=== PATIENT | female | born 1970 | race Asian ===

== ENCOUNTER 2018-06-05 10:51 | Day surgery (SDC) | payer OTHER, SELFPAY ==
[2018-06-05] VITALS (7 sets, daily range): BP systolic 105–145; BP diastolic 73–94; PULSE 56–73; RESP 11–16; TEMP 36.2–37.1; O2SAT 97–100; BMI 24.7
--- NOTE | 2018-06-05 | PATH_ITS ---
[facility] Accession Number: [id number] . 01 Material submitted: . PART A: ENDOCERVICAL POLYP PART B: ENDOMETRIAL CURETTINGS . 02 Diagnosis: A. Endocervical Polyp: Fragments of inflamed cervical / endocervical polyp with reactive squamous features; negative for squamous and glandular dysplasia and malignancy. Portion of lower uterine segment; negative for glandular hyperplasia, cytologic atypia, and malignancy. . B. Endometrial Curettings: Polypoid portions of late secretory endometrium; negative for glandular hyperplasia, cytologic atypia, and malignancy. [facility]/06/08/2018 . 02 Comment: This patient's previous Pap smear report ([id number]; 06/04/2018) is reviewed, and the atypical squamous cells present on the previous Pap smear could derive from the current biopsy tissue. These findings do not correlate, in the appropriate clinical setting. . 02 Electronically signed: . Liz Paulino MD, Pathologist NPI- [id number] . 01 Gross description: . Received two formalin-filled containers, both labeled with the patient's name: . A. In a container labeled endocervical polyp, are multiple less than 0.1 cm to 0.7 cm portions of tissue and mucoid material, entirely submitted in cassette A. B. In a container labeled endometrial curettings, is approximately a 1.5 cc aggregate of tissue, mucoid material, and blood, which is filtered, wrapped, and entirely submitted in cassette B. ([id number]) /FRR . 02 Pathologist provided ICD-10: N84.1 . 02 CPT . 182576, 989930 Performed at: 01 [facility] [address] [place] [id number] MD Steven Swann MD Phone: [phone] Performed at: 02 [facility] [address] [place] [address] [id number] MD Beata Ortiz MD Phone: [phone]
[2018-06-05] MEDS: LACTATED RINGERS 1,000 ML 42 ML IV (11:27)
--- NOTE | 2018-06-05 12:32 | SUR.OPER ---
Lithotomy on padded OR bed, head on pillow, arms secured on padded arm boards at <90 degrees abduction. Legs secured in padded yellow fins stirrups.
--- NOTE | 2018-06-05 12:40 | PM.PREOP ---
Pre-operative Note Interval Note History & Physical reviewed/Exam performed by Physician: Yes Changes to H&P: No
--- NOTE | 2018-06-05 13:25 | SUR.OPER ---
Novasure cavity length 4.0, width 4.6, time 76 seconds, power 101.
--- NOTE | 2018-06-08 07:07 | PM.HP.1 ---
History of Present Illness Date Patient Seen: 06/05/18 Time Patient Seen: 11:45 Chief complaint: [id number] Narrative: Patient is a 47-year-old with menometrorrhagia here for D&C hysteroscopy and NovaSure endometrial ablation Patient History Medical History Diabetes, gestational (Acute) Hyperlipidemia (Acute) Impaired vision (Acute) Surgical History Status post delivery (07/08/11) Status post tubal ligation (07/08/11) Social History household members: spouse and children Smoking Status: Never smoker Family & Social History Social History: household members spouse,children Tobacco & Substance use: Smoking Status Never smoker Meds Home Medications Medication Instructions Recorded Confirmed Type cetirizine 10 mg PO Q DAY #0 08/15/16 06/05/18 History multivitamin [Multiple Vitamins] 1 tab PO QDAY #0 08/15/16 06/05/18 History flaxseed oil 1,400 mg PO DAILY 06/05/18 06/05/18 History oxycodone-acetaminophen [Percocet] 1 tab PO Q4-6H PRN #14 tab 06/05/18 Rx Allergies Allergy/AdvReac Type Severity Reaction Status Date / Time No Known Drug Allergies Allergy Verified 06/05/18 11:09 Exam Vital Signs (past 8 hours): Oxygen Delivery Method Room Air Narrative Exam Narrative: HEENT: No thyromegaly, no anterior cervical or supraclavicular lymphadenopathy. Lungs:Clear to auscultation bilaterally, no wheezes. Cardiovascular: Regular rate and rhythm, no murmurs, rubs, or gallops. Abdomen: Well-healed scars. No hepatosplenomegaly. No masses palpable. External genitalia: Normal Vagina: Normal Cervix: [Normal] Bimanual exam: 7 Week size uterus. Mobile. Rectal: [No masses]. Assessment & Plan Assessment & Plan narrative: Assessment: 47-year-old with menometrorrhagia Anemia Plan: D&C hysteroscopy with NovaSure endometrial ablation The risks, benefits, and alternatives to the procedure were explained to the patient. The risks including bleeding, infection, and uterine perforation. She understands these risks and agrees to proceed. A full PAR-Q was held and consent form was signed.
--- NOTE | 2018-06-08 07:15 | P.OP_ITS ---
Operative Date/Time/Diagnoses Date of procedure: 06/05/18 Time of procedure: 13:00 Pre-op diagnosis: Menometrorrhagia Anemia Post-op diagnosis: same Procedure: Procedures Operation Date: 06/05/18 12:00 Actual Procedures Side Surgeon p Hysteroscopy D&C w/Novasure Endometrial Ablation, Endocervical polypectomy Sara Walden MD Indications: Menometrorrhagia Anemia Surgeon: Sara Walden Anesthesia Type: General (LMA) Operative Notes Findings: 6 week size uterus Both fallopian tubes observed Endocervical polyp Length of the uterus 4.0 cm, with of the uterus 4.6 cm, power 101 w, time 76 sec Closure Type: not applicable Specimen(s): endometrial curettings and other (Endocervical polyp) Estimated blood loss (mL): 20 Blood products transfused: none Procedure in detail: After informed consent was obtained, the patient was taken to the operating room where she was placed in the dorsal supine position after adequate LMA general anesthesia was achieved, she was placed in the dorsal lithotomy position and prepped and draped in the usual sterile fashion. A time- out was performed. A bivalve speculum was placed into the vagina and the anterior lip of the cervix grasped with a single-tooth tenaculum. An endocervical polyp was observed. The cervical os was sequentially dilated until the hysteroscope could be passed easily into the endometrial cavity. Initial inspection with the hysteroscope revealed both fallopian tube ostia. No polyps or fibroids were observed in the uterus. Sharp curettage was performed yielding a large amount of endometrial curettings. The hysteroscope was removed. Uterus was measured from the internal os to the fundus and measured 4 cm. This was set on the NovaSure catheter as well as the generator. The NovaSure catheter passed easily into the endometrial cavity and was opened. The width of the uterus was 4.6 cm. This was set on the NovaSure generator. This indicated a power of 101 w. The cervix was capped, the cavity assessment was performed and passed. The cycle was initiated and lasted 76 sec at the completion of the cycle the cervix was then capped, the NovaSure catheter was closed and removed from the uterus. Using a small loop, the endocervical polyp was removed. Hemostasis was achieved. The single-tooth tenaculum was removed from the anterior lip of the cervix. [place] speculum was removed from the vagina sponge, lap, and instrument counts were correct x2. The patient tolerated the procedure well, was taken to PACU in stable condition. Complications: none Post-operative Condition: stable Disposition: PACU Plan for aftercare: Home after recovery
== END 2018-06-05 14:31 | disposition home or self-care (01) ==
PROVIDERS: PCP Family Medicine; Visit Provider Obstetrics & Gynecology
PROC: 0U5B8ZZ Destruction of Endometrium, Via Natural or Artificial Opening Endoscopic (ICD-10-PCS; CPT 58563; principal; 2018-06-05 12:00)
DX: N84.1 Polyp of cervix uteri (principal); D64.9 Anemia, unspecified; E78.5 Hyperlipidemia, unspecified
CPT/HCPCS: 58563; J1100; J1885; J2704

== ENCOUNTER 2018-11-27 16:40 | Observation (INO) | payer OTHER, SELFPAY ==
[2018-11-27] VITALS (14 sets, daily range): BP systolic 108–173; BP diastolic 61–100; PULSE 66–94; RESP 10–98; TEMP 36.8–38.2; O2SAT 95–100; BMI 24.2
--- NOTE | 2018-11-27 | PATH_ITS ---
[facility] Accession Number: [id number] . 01 Material submitted: . appendix - APPENDIX . 01 Clinical history: . FEVER, LOWER RIGHT PAIN . 02 Diagnosis: Appendix: Acute necrotizing appendicitis. [facility]/12/02/2018 . 02 Electronically signed: . Pop Piña MD, Pathologist NPI- [id number] . 01 Gross description: . Received in formalin, labeled appendix, is an intact appendix (length-6.5 cm, diameter-0.8 cm) with hawthorne-taylor smooth shiny focally exudate-covered serosa and attached mesoappendix (up to 1.2 cm thick). The resection margin is crimped closed. The lumen contains brown solid soft material. The wall is up to 0.3 cm thick. No nodules, masses or lesions are identified. The resection margin is inked black. Section code: (A1) resection margin en face and three additional passenger relations representative serial sections; (A2) one-half of the bivalved tip. ([id number]) /MRV . 02 Pathologist provided ICD-10: K35.80 . 02 CPT . 051879 Performed at: 01 [facility] [address], [place], [place] [id number] MD Steven Swann MD Phone: [phone] Performed at: 02 [facility] [address] [place], [place] [id number] MD Beata Ortiz MD Phone: [phone]
[2018-11-27] MEDS: SODIUM CHLORIDE 0.9% 1,000 ML 1000 ML IV (17:49)
[2018-11-27 18:04] LABS: Alanine Aminotransferase 7 IU/L (9-52); Albumin 4.5 g/dL (3.5-5.0); Albumin Globulin Ratio 1.2 (1.0-2.8); Alkaline Phosphatase 63 U/L (38-126); Aspartate Aminotransferase 18 IU/L (14-36); BUN Creatinine Ratio 16.7 (6-22); Bilirubin Total 0.8 mg/dL (0.2-1.3); Blood Urea Nitrogen 10 mg/dL (7-17); Calcium 9.4 mg/dL (8.4-10.2); Carbon Dioxide 25 mmol/L (22-32); Chloride 100 mmol/L (98-107); Estimated Glomerular Filt Rate > 60.0 mL/min (>60); Globulin 3.7 g/dL (1.7-4.1); Glucose 103 mg/dL (70-100); HEMOLYSIS < 15 (0-50); Lipase 50 U/L (23-300); Potassium 3.7 mmol/L (3.4-5.1); Sodium 136 mmol/L (137-145); Total Protein 8.2 g/dL (6.3-8.2)
[2018-11-27 18:09] LABS: Add Manual Diff / Slide Review NO; Basophils Absolute Auto 100 /uL (0-100); Basophils Percent Auto 0.4 % (0-2); Eosinophils Absolute Auto 0 /uL (0-450); Eosinophils Percent Auto 0.1 % (2-4); Hematocrit 38.7 % (36-46); Hemoglobin 13.3 g/dL (12.0-16.0); Lymphocytes Absolute Auto 1300 /uL (1100-4500); Mean Corpuscular HGB Conc 34.3 % (30-36); Mean Corpuscular Hemoglobin 29.9 PG (26-34); Mean Corpuscular Volume 87.2 fL (80-100); Monocytes Absolute Auto 900 /uL (0-900); Monocytes Percent Auto 5.7 % (3-14); Neutrophils Absolute Auto 12600 /uL (1500-7000); Neutrophils Percent Auto 84.8 % (50-75); Platelet Count 252 X10^3/uL (150-400); Red Blood Cell Count 4.44 X10^6/uL (4.0-5.2); White Blood Cell Count 14.8 X10^3/uL (4.5-11.0)
--- NOTE | 2018-11-27 18:11 | DI.CT.S_ITS ---
PROCEDURE: CT ABDOMEN PELVIS W CON INDICATIONS: RLQ pain with nausea and fever TECHNIQUE: After the administration of intravenous contrast, 5 mm thick sections acquired from the diaphragm to the symphysis. 5 mm coronal and sagittal reformats were acquired. For radiation dose reduction, the following was used: automated exposure control, adjustment of mA and/or kV according to patient size. COMPARISON: None. FINDINGS: Image quality: Excellent. ABDOMEN: Lung bases: Lung bases are clear. Heart size is normal. Solid organs: Liver is normal in size and enhancement. Gallbladder appears normal. Biliary system is non dilated. Pancreas enhances normally. Spleen is normal in size and enhancement. No adrenal nodules. Kidneys demonstrate normal size and enhancement, without hydronephrosis. Peritoneum and bowel: Bowel loops demonstrate normal wall thickness and caliber. No free fluid or air. Nodes and vessels: No retroperitoneal or mesenteric adenopathy by size criteria. Aorta and inferior vena cava are normal in size. Miscellaneous: No ventral hernias. PELVIS: Genitourinary: Bladder wall thickness is normal. Miscellaneous: No inguinal hernias or adenopathy. At the right lower quadrant there is acute appendicitis with 2 adjacent appendicoliths immediately beyond the base of the appendix and appendiceal diameter is relatively larger 1.2 cm, fluid filled with periappendiceal edema but without evidence of appendiceal perforation. Bones: No suspicious bony lesions. No vertebral body compression fractures. IMPRESSION: Acute appendicitis, appendicoliths are present which increase the risk of perforation. However, no evidence of periappendiceal abscess is present. Findings immediately called to the ordering health care provider. Dictated by: Blane Alvarez M.D. on 11/27/2018 at 18:57 Approved by: lBane Alvarez M.D. on 11/27/2018 at 18:58
[2018-11-27] MEDS: PIPERACILLIN-TAZO 3.375 GM/50 ML FROZ.PIGGY IV (19:11)
[2018-11-27] MEDS: LACTATED RINGERS 1,000 ML 42 ML IV (19:30)
--- NOTE | 2018-11-27 19:32 | PM.HP.1 ---
History of Present Illness Date Patient Seen: 11/27/18 Time Patient Seen: 19:32 Chief complaint: FEVER LOWER RIGHT PAIN Narrative: 48-year-old white female patient has had pain for 24 hours in the mid abdomen radiating now into the right lower quadrant she has had significant anorexia has not eaten all day nausea but no vomiting. Slight elevation of her white count in the emergency room this evening with a left shift. CT scan of the abdomen and pelvis confirms acute uncomplicated appendicitis. She has received IV Zosyn and is being prepared for appendectomy Patient History Medical History Diabetes, gestational (Acute) Hyperlipidemia (Acute) Impaired vision (Acute) Surgical History Status post delivery (07/08/11) Status post tubal ligation (07/08/11) Social History household members: spouse and children Smoking Status: Never smoker Family & Social History Social History: household members spouse,children Safety & Behavioral: Feels Safe in Current Yes Environment Tobacco & Substance use: Smoking Status Never smoker Substance Use Type does not use Meds Home Medications Medication Instructions Recorded Confirmed Type cetirizine 10 mg PO DAILY #0 08/15/16 11/27/18 History multivitamin [Multiple Vitamins] 1 tab PO DAILY #0 08/15/16 11/27/18 History flaxseed oil 1 dose PO DAILY 11/27/18 11/27/18 History fluticasone propionate [Flonase 1 puff INTRANASAL DAILY 11/27/18 11/27/18 History Allergy Relief] ibuprofen 1 dose PO PRN PRN 11/27/18 11/27/18 History Allergies Allergy/AdvReac Type Severity Reaction Status Date / Time No Known Drug Allergies Allergy Verified 11/27/18 17:17 Review of Systems Review of Systems All systems reviewed & are unremarkable except as noted in HPI and below Exam Vital Signs (past 8 hours): - 11/27/18 17:19 11/27/18 18:46 Temperature 100.8 F H Pulse Rate 94 H 84 Respiratory Rate 18 16 Blood Pressure 173/100 H Blood Pressure [Left Arm] 128/80 Pulse Oximetry 100 100 Oxygen Delivery Method Room Air Narrative Exam Narrative: She is slightly febrile 100.8 ears nose and throat are normal Neck no adenopathy Lungs are clear with no rales or wheezes Heart regular rhythm no murmur Abdomen is exquisitely tender in the right lower quadrant with guarding and rebound tenderness. All other quadrants are nontender. Pelvic was not done. Extremities are normal. Neurologic normal. Objective Labs Result Diagrams: 11/27/18 17:40 11/27/18 17:40 Labs: Laboratory Results - last 24 hr 11/27/18 08 17:40 17:40 WBC 14.8 H RBC 4.44 Hgb 13.3 Hct 38.7 MCV 87.2 MCH 29.9 MCHC 34.3 RDW 13.0 Plt Count 252 Neut % (Auto) 84.8 H Lymph % (Auto) 9.0 L Hughes % (Auto) 5.7 Eos % (Auto) 0.1 L Baso % (Auto) 0.4 Neut # (Auto) 73644 H Lymph # (Auto) 1300 Hughes # (Auto) 900 Eos # (Auto) 0 Baso # (Auto) 100 Sodium 136 L Potassium 3.7 Chloride 100 Carbon Dioxide 25 BUN 10 Creatinine 0.60 Estimated GFR > 60.0 BUN/Creatinine Ratio 16.7 Glucose 103 H Calcium 9.4 Total Bilirubin 0.8 AST 18 ALT 7 L Alkaline Phosphatase 63 Total Protein 8.2 Albumin 4.5 Globulin 3.7 Albumin/Globulin Ratio 1.2 Lipase 50 Assessment & Plan Assessment & Plan narrative: Patient has acute uncomplicated appendicitis. Is receiving IV fluids. Has received a dose of Zosyn. She will have an open appendectomy. She understands the disease process and the operation and has no further questions.
--- NOTE | 2018-11-27 20:28 | SUR.OPER ---
Supine on padded OR bed, head on pillow, arms secured on padded arm boards at <90 degrees abduction, legs uncrossed, safety belt at thigh, tape over blanket over lower legs.
[2018-11-27] MEDS: SODIUM CHLORIDE IRRIG SOLUTION 1,000 ML, BACITRACIN 50,000 UNIT IRR (20:34)
[2018-11-27] MEDS: BUPIVACAINE 0.5% W/ EPI (PF) VIAL 30 ML INJ (20:39)
--- NOTE | 2018-11-27 20:55 | PM.OP.1 ---
Operative Date/Time/Diagnoses Date of procedure: 11/27/18 Time of procedure: 20:56 Pre-op diagnosis: Acute appendicitis uncomplicated Post-op diagnosis: same Procedure & Clinicians Procedure: Appendectomy Same procedure as scheduled: Yes Indications: Acute appendicitis Surgeon: Keith Young Click Yes if Unassisted: Yes Anesthesia Type: General Operative Notes Findings: Acute uncomplicated appendicitis Closure Type: primary Specimen(s): other (Appendix and peritoneal cultures were submitted) Estimated Blood Loss (mL): 50 Blood products transfused: none Procedure in detail: The patient was properly identified during surgical pause under general endotracheal anesthesia. She was prepped and draped in a sterile fashion exposure of the lower abdomen. A standard Gokul-Tucker incision was made over McBurney's point the oblique muscles split in a grid iron fashion so as to expose the peritoneum. Peritoneum was opened avoiding injury to the underlying structures. The cecum was rotated into the wound. The appendix was grossly infected covered with fibrin but not perforated. There was no abscess. Peritoneal fluid around the appendix was cultured for aerobes and anaerobes. The appendix was elevated and the mesoappendix divided between clamps the vessels ligated with 2 0 Vicryl. There was excellent hemostasis. The base the appendix was stapled closed with a TA instrument. The appendix was removed. The staple line was intact. The peritoneal cavity in the right lower quadrant and pelvis irrigated with copious bacitracin saline aspirated dry. There was no bleeding. No further purulence. Peritoneum closed with a running 2 0 Vicryl. Fascia closed with 1. PDS. Subcu irrigated with bacitracin. Skin loosely stapled. Sterile dressings applied procedure well tolerated. Complications: none Condition: stable Disposition: PACU
[2018-11-27] MEDS: HYDROMORPHONE 2 MG INJ 0.5 MG IV (21:11)
--- NOTE | 2018-11-27 21:41 | SUR.PHASEI ---
PACU Phase 1 post op note: VSS, O2 sat WNL,Pain improved to 1/10 after single dose of pain medication. Tolerating ice chips without nausea. Dressing CDI to RLQ. Ice pack to surgical site. Stable to transfer to IP room 213 Bedside report to Reza XIAO. Suad Hughes RN
[2018-11-27] MEDS: DEXTROSE 5%-0.45% NS 1,000 ML 100 ML IV (23:30)
--- NOTE | 2018-11-27 23:40 | ED.ABDPAIN ---
HPI - Abdominal Pain <Omari MezaMariluBrentjennifer [facility] - Last Filed: 11/28/18 00:06> General Chief Complaint: Abdominal Pain Stated Complaint: FEVER LOWER RIGHT PAIN Time Seen by Provider: 11/27/18 17:34 Source: patient Mode of arrival: ambulatory Limitations: no limitations History of Present Illness HPI narrative: This is a 48-year-old female, non smoker, presents with her spouse with chief complain of right lower quadrant pain with decreased appetite, fever, chills, nausea and vomiting once. The patient reports onset of her discomfort started after the midnight and mid upper abdomen discomfort now has radiated to right lower quadrant. She reports abdominal bloatedness, pain increases with any movements, laughing, or even cough. She reports her appetite has decreased and her last solid food was last night. Her T-max at home was 102 and had taken ibuprofen for this. She reports prior history of with bilateral tubal ligation. She also reports some urinary difficulty. Related Data Home Medications Medication Instructions Recorded Confirmed cetirizine 10 mg PO DAILY #0 08/15/16 11/27/18 multivitamin [Multiple Vitamins] 1 tab PO DAILY #0 08/15/16 11/27/18 flaxseed oil 1 dose PO DAILY 11/27/18 11/27/18 fluticasone propionate [Flonase 1 puff INTRANASAL DAILY 11/27/18 11/27/18 Allergy Relief] ibuprofen 1 dose PO PRN PRN 11/27/18 11/27/18 Allergies Allergy/AdvReac Type Severity Reaction Status Date / Time No Known Drug Allergies Allergy Verified 11/27/18 19:48 Review of Systems <Omari Styles [facility] - Last Filed: 11/28/18 00:06> Review of Systems General: See HPI HEENT: Denies sinus pain, ear pain, sore throat, difficulty swallowing, dizziness. Respiratory: Denies dyspnea, cough, wheezing, hemoptysis, sputum. Cardiovascular: Denies chest pain, palpitations, orthopnea, edema. Gastrointestinal: See HPI : Reports dysuria. Denies frequency, incontinence, hematuria, urinary retention. Musculoskeletal: Denies weakness, joint pain or bony pain. Skin: Denies rash, skin lesions, or other. Neurologic: Denies weakness, headache, numbness, change in speech, confusion, seizures, incoordination. Psychiatric: No concerning psychosocial issues. 12-point review of systems is negative except for those stated above. PFSH <ALVARO Viera - Last Filed: 11/28/18 00:06> Medical History (Updated 11/27/18 @ 23:53 by ALVARO Viera) Menorrhagia (Resolved) Diabetes, gestational (Acute) Hyperlipidemia (Acute) Impaired vision (Acute) Surgical History (Updated 11/27/18 @ 23:53 by ALVARO Viera) History of endometrial ablation (Chronic) Status post delivery (07/08/11) Status post tubal ligation (07/08/11) Social History household members: spouse and children Smoking Status: Never smoker alcohol intake: current Social History household members: spouse and children Smoking Status: Never smoker alcohol intake: current Exam <ALVARO Viera - Last Filed: 11/28/18 00:06> Narrative Exam Narrative: General appearance: well developed, well nourished, in no acute distress. Head: normocephalic, atraumatic, no scalp lesions, non-tender. Eye: pupil equal, round. EOMI. Nose: nares patent. Oral: mucosa moist. Neck/Thyroid: neck supple, full range of motion, no visible masses. Skin: no suspicious rashes, lesions over visible areas. Warm and dry. Heart: S1, S2. Normal heart rate and regular rhythm. Lungs: Lung sounds are clear to auscultate bilaterally. Breathing even and unlabored. No stridor. No accessory muscles used. Chest: normal shape and expansion. Abdomen: Neurologic: alert and oriented. Cognitive exam, [employer] and PNS grossly intact on informal exam. Psych: good eye contact, normal affect. Initial Vital Signs Initial Vital Signs: Vital Signs Temperature 100.8 F H 11/27/18 17:19 Pulse Rate 94 H 11/27/18 17:19 Respiratory Rate 18 11/27/18 17:19 Blood Pressure 173/100 H 11/27/18 17:19 Pulse Oximetry 100 11/27/18 17:19 GI Inspection: normal to inspection, non-distended and no visible herniation Palpation: soft, guarding (Positive rebound tenderness in right lower quadrant), No mass and tender Auscultation: normal bowel sounds <Singh Ramirez DO - Last Filed: 11/28/18 07:37> Initial Vital Signs Initial Vital Signs: Vital Signs Temperature 100.8 F H 11/27/18 17:19 Pulse Rate 94 H 11/27/18 17:19 Respiratory Rate 18 11/27/18 17:19 Blood Pressure 173/100 H 11/27/18 17:19 Pulse Oximetry 100 11/27/18 17:19 Course <Omari StylesALVARO - Last Filed: 11/28/18 00:06> Orders Ordered: Acetaminophen (Tylenol) 650 mg PO Q6HR PRN PRN Reason: As Needed for Fever/Mild Pain Hydrocodone Bitart/Acetaminophen ([place] 5/325) 1 tab PO Q4HR PRN PRN Reason: Pain, Moderate (4-6) Calcium Carbonate (Tums) 1,000 mg PO Q4HR PRN PRN Reason: Dyspepsia Fentanyl (Sublimaze) 50 mcg IV Q5MIN PRN PRN Reason: Pain, Moderate (4-6) Hydromorphone HCl (Dilaudid) 0.5 mg IV Q5MIN PRN PRN Reason: Pain, Moderate (4-6) Last Admin: 11/27/18 21:11 Dose: 0.5 mg Lactated Ringer's (Lactated Ringers) 1,000 mls @ 42 mls/hr IV CONT [facility] Last Admin: 11/27/18 19:30 Dose: 42 mls/hr Dextrose/Sodium Chloride (Dextrose 5%-0.45% Ns) 1,000 mls @ 100 mls/hr IV CONT [facility] Last Admin: 11/27/18 23:30 Dose: 100 mls/hr Meperidine HCl (Demerol) 25 mg IV Q5MIN PRN PRN Reason: Pain or shivering Metoclopramide HCl (Reglan) 10 mg IV NOW PRN PRN Reason: Nausea And Vomiting Morphine Sulfate (Morphine) 2 mg IV Q4HR PRN PRN Reason: Pain, Moderate (4-6) Ondansetron HCl (Zofran) 4 mg IV NOW PRN PRN Reason: Nausea And Vomiting Ondansetron HCl (Zofran) 4 mg IV Q8HR PRN PRN Reason: Nausea And Vomiting Discontinued Medications Bupivacaine HCl/Epinephrine Bitart (Sensorcaine 0.5% W/ Epi (Pf)) 30 ml INJ NOW ONE Stop: 11/27/18 20:35 Last Admin: 11/27/18 20:39 Dose: 30 ml Sodium Chloride 1,000 ml/ (Bacitracin 50,000 unit) 0 ml IRR NOW ONE Stop: 11/27/18 20:35 Last Admin: 11/27/18 20:34 Dose: 1,000 irrig.soln Sodium Chloride (Normal Saline 0.9%) 1,000 mls @ 1,000 mls/hr IV BOLUS ONE Stop: 11/27/18 18:31 Last Infusion: 11/27/18 19:14 Dose: 0 mls/hr Admin: 11/27/18 17:49 Dose: 1,000 mls/hr Piperacillin/Tazobactam/Dextrose (Zosyn) 3.375 gm in 50 mls @ 100 mls/hr IV NOW ONE Stop: 11/27/18 19:30 Last Infusion: 11/27/18 19:40 Dose: 0 mls/hr Admin: 11/27/18 19:11 Dose: 100 mls/hr Vital Signs - 8 hr 11/28/18 00:00 11/28/18 06:00 Temperature 98.3 F 98.1 F Pulse Rate 69 61 Respiratory Rate 16 16 Blood Pressure 110/66 108/65 Pulse Oximetry 98 98 <Singh Ramirez, - Last Filed: 11/28/18 07:37> Orders Ordered: Acetaminophen (Tylenol) 650 mg PO Q6HR PRN PRN Reason: As Needed for Fever/Mild Pain Hydrocodone Bitart/Acetaminophen ([place] 5/325) 1 tab PO Q4HR PRN PRN Reason: Pain, Moderate (4-6) Calcium Carbonate (Tums) 1,000 mg PO Q4HR PRN PRN Reason: Dyspepsia Fentanyl (Sublimaze) 50 mcg IV Q5MIN PRN PRN Reason: Pain, Moderate (4-6) Hydromorphone HCl (Dilaudid) 0.5 mg IV Q5MIN PRN PRN Reason: Pain, Moderate (4-6) Last Admin: 11/27/18 21:11 Dose: 0.5 mg Lactated Ringer's (Lactated Ringers) 1,000 mls @ 42 mls/hr IV CONT [facility] Last Admin: 11/27/18 19:30 Dose: 42 mls/hr Dextrose/Sodium Chloride (Dextrose 5%-0.45% Ns) 1,000 mls @ 100 mls/hr IV CONT [facility] Last Admin: 11/27/18 23:30 Dose: 100 mls/hr Meperidine HCl (Demerol) 25 mg IV Q5MIN PRN PRN Reason: Pain or shivering Metoclopramide HCl (Reglan) 10 mg IV NOW PRN PRN Reason: Nausea And Vomiting Morphine Sulfate (Morphine) 2 mg IV Q4HR PRN PRN Reason: Pain, Moderate (4-6) Ondansetron HCl (Zofran) 4 mg IV NOW PRN PRN Reason: Nausea And Vomiting Ondansetron HCl (Zofran) 4 mg IV Q8HR PRN PRN Reason: Nausea And Vomiting Discontinued Medications Bupivacaine HCl/Epinephrine Bitart (Sensorcaine 0.5% W/ Epi (Pf)) 30 ml INJ NOW ONE Stop: 11/27/18 20:35 Last Admin: 11/27/18 20:39 Dose: 30 ml Sodium Chloride 1,000 ml/ (Bacitracin 50,000 unit) 0 ml IRR NOW ONE Stop: 11/27/18 20:35 Last Admin: 11/27/18 20:34 Dose: 1,000 irrig.soln Sodium Chloride (Normal Saline 0.9%) 1,000 mls @ 1,000 mls/hr IV [facility] ONE Stop: 11/27/18 18:31 Last Infusion: 11/27/18 19:14 Dose: 0 mls/hr Admin: 11/27/18 17:49 Dose: 1,000 mls/hr Piperacillin/Tazobactam/Dextrose (Zosyn) 3.375 gm in 50 mls @ 100 mls/hr IV NOW ONE Stop: 11/27/18 19:30 Last Infusion: 11/27/18 19:40 Dose: 0 mls/hr Admin: 11/27/18 19:11 Dose: 100 mls/hr Vital Signs - 8 hr 11/28/18 00:00 11/28/18 06:00 Temperature 98.3 F 98.1 F Pulse Rate 69 61 Respiratory Rate 16 16 Blood Pressure 110/66 108/65 Pulse Oximetry 98 98 MDM - Abdominal Pain <Omari MezaMariluPoonamALVARO - Last Filed: 11/28/18 00:06> Differential Diagnosis Differential diagnosis: Likely abdominal pain, acute appendicitis, calculus of kidney, small bowel obstruction and other (UTI, ovarian cyst) Medical Records Attestation: I reviewed the patient's medical records. Lab Data Attestation: I reviewed the patient's lab results. Result diagrams: 11/27/18 17:40 11/27/18 17:40 Lab Results 11/27/18 11/27/18 Range/Units 17:40 17:40 WBC 14.8 H (4.5-11.0) X10^3/uL RBC 4.44 (4.0-5.2) X10^6/uL Hgb 13.3 (12.0-16.0) g/dL Hct 38.7 (36-46) % MCV 87.2 (80-100) fL MCH 29.9 (26-34) PG MCHC 34.3 (30-36) % RDW 13.0 (11.6-14.8) % Plt Count 252 (150-400) X10^3/uL Neut % (Auto) 84.8 H (50-75) % Lymph % (Auto) 9.0 L (25-40) % [place] % (Auto) 5.7 (3-14) % Eos % (Auto) 0.1 L (2-4) % Baso % (Auto) 0.4 (0-2) % Neut # (Auto) 02726 H (0106-3851) /uL Lymph # (Auto) 1300 (7755-0031) /uL [place] # (Auto) 900 (0-900) /uL Eos # (Auto) 0 (0-450) /uL Baso # (Auto) 100 (0-100) /uL Sodium 136 L (137-145) mmol/L Potassium 3.7 (3.4-5.1) mmol/L Chloride 100 (98-107) mmol/L Carbon Dioxide 25 (22-32) mmol/L BUN 10 (7-17) mg/dL Creatinine 0.60 (0.52-1.04) mg/dL Estimated GFR > 60.0 (>60) mL/min BUN/Creatinine Ratio 16.7 (6-22) Glucose 103 H (70-100) mg/dL Calcium 9.4 (8.4-10.2) mg/dL Total Bilirubin 0.8 (0.2-1.3) mg/dL AST 18 (14-36) IU/L ALT 7 L (9-52) IU/L Alkaline Phosphatase 63 (38-126) U/L Total Protein 8.2 (6.3-8.2) g/dL Albumin 4.5 (3.5-5.0) g/dL Globulin 3.7 (1.7-4.1) g/dL Albumin/Globulin Ratio 1.2 (1.0-2.8) Lipase 50 (23-300) U/L Point of care testing: Point of Care Testing Test Results Negative Urine Dip Bedside Urine Glucose Negative Bedside Urine Bilirubin - Negative Bedside Urine Ketone - Negative Urine Specific [place] 1.015 Bedside Urine Occult Blood - Negative Bedside Urine pH 6.5 Bedside Urine Protein - Negative Bedside Urine Urobilinogen - Negative Bedside Urine Nitrite - Negative Bedside Urine Leukocytes - Negative Esterase Imaging Data CT scan - abdomen: Radiologist's impression: [place] [address] CT Scan Report Signed Patient: Lila Morales JMR#: [id number] : 1970Acct:[id number] Age/Sex: 48 / FDate of Service: 11/27/18 Loc: ED Accession Number: [id number] Procedure: CT abdomen pelvis w con Ordering Provider: Omari Styles PROCEDURE: CT ABDOMEN PELVIS W CON INDICATIONS: RLQ pain with nausea and fever TECHNIQUE: After the administration of intravenous contrast, 5 mm thick sections acquired from the diaphragm to the symphysis. 5 mm coronal and sagittal reformats were acquired. For radiation dose reduction, the following was used: automated exposure control, adjustment of mA and/or kV according to patient size. COMPARISON: None. FINDINGS: Image quality: Excellent. ABDOMEN: Lung bases: Lung bases are clear. Heart size is normal. Solid organs: Liver is normal in size and enhancement. Gallbladder appears normal. Biliary system is non dilated. Pancreas enhances normally. Spleen is normal in size and enhancement. No adrenal nodules. Kidneys demonstrate normal size and enhancement, without hydronephrosis. Peritoneum and bowel: Bowel loops demonstrate normal wall thickness and caliber. No free fluid or air. Nodes and vessels: No retroperitoneal or mesenteric adenopathy by size criteria. Aorta and inferior vena cava are normal in size. Miscellaneous: No ventral hernias. PELVIS: Genitourinary: Bladder wall thickness is normal. Miscellaneous: No inguinal hernias or adenopathy. At the right lower quadrant there is acute appendicitis with 2 adjacent appendicoliths immediately beyond the base of the appendix and appendiceal diameter is relatively larger 1.2 cm, fluid filled with periappendiceal edema but without evidence of appendiceal perforation. Bones: No suspicious bony lesions. No vertebral body compression fractures. IMPRESSION: Acute appendicitis, appendicoliths are present which increase the risk of perforation. However, no evidence of periappendiceal abscess is present. Findings immediately called to the ordering health care provider. Dictated by: Blane Alvarez M.D. on 11/27/2018 at 18:57 Approved by: Blane Alvarez M.D. on 11/27/2018 at 18:58 [facility] Narrative Medical decision making narrative: This is a pleasant 48-year-old female complaining of right lower quadrant pain with nausea and vomiting x1, fever, chills, decreased appetite since the pain started after the midnight this morning. She also reports urinary discomfort. The CBC indicates elevated white count with neutrophil. The chemistry test and urine test were unremarkable. CT scan shows acute appendicitis with appendicoliths and appendiceal diameter is relatively larger in 1.2 cm with fluid filled periappendiceal edema. Her physical exam is consistent with acute appendicitis. There was no perforation was noted in CT scan. Radiologist, Dr. Alvarez, called the ER to inform the findings. Dr. Recio was consulted over the phone and discussed findings. Patient was started on IV Zosyn as instructed by Dr. Recio. Dr. Recio kindly accepted her care and to take her to surgery. <Singh Ramirez, DO - Last Filed: 11/28/18 07:37> Lab Data Lab Results 11/27/18 11/27/18 Range/Units 17:40 17:40 WBC 14.8 H (4.5-11.0) X10^3/uL RBC 4.44 (4.0-5.2) X10^6/uL Hgb 13.3 (12.0-16.0) g/dL Hct 38.7 (36-46) % MCV 87.2 (80-100) fL MCH 29.9 (26-34) PG MCHC 34.3 (30-36) % RDW 13.0 (11.6-14.8) % Plt Count 252 (150-400) X10^3/uL Neut % (Auto) 84.8 H (50-75) % Lymph % (Auto) 9.0 L (25-40) % [place] % (Auto) 5.7 (3-14) % Eos % (Auto) 0.1 L (2-4) % Baso % (Auto) 0.4 (0-2) % Neut # (Auto) 38389 H (4752-3882) /uL Lymph # (Auto) 1300 (3433-1439) /uL [place] # (Auto) 900 (0-900) /uL Eos # (Auto) 0 (0-450) /uL Baso # (Auto) 100 (0-100) /uL Sodium 136 L (137-145) mmol/L Potassium 3.7 (3.4-5.1) mmol/L Chloride 100 (98-107) mmol/L Carbon Dioxide 25 (22-32) mmol/L BUN 10 (7-17) mg/dL Creatinine 0.60 (0.52-1.04) mg/dL Estimated GFR > 60.0 (>60) mL/min BUN/Creatinine Ratio 16.7 (6-22) Glucose 103 H (70-100) mg/dL Calcium 9.4 (8.4-10.2) mg/dL Total Bilirubin 0.8 (0.2-1.3) mg/dL AST 18 (14-36) IU/L ALT 7 L (9-52) IU/L Alkaline Phosphatase 63 (38-126) U/L Total Protein 8.2 (6.3-8.2) g/dL Albumin 4.5 (3.5-5.0) g/dL Globulin 3.7 (1.7-4.1) g/dL Albumin/Globulin Ratio 1.2 (1.0-2.8) Lipase 50 (23-300) U/L Point of care testing: Point of Care Testing Test Results Negative Urine Dip Bedside Urine Glucose Negative Bedside Urine Bilirubin - Negative Bedside Urine Ketone - Negative Urine Specific [place] 1.015 Bedside Urine Occult Blood - Negative Bedside Urine pH 6.5 Bedside Urine Protein - Negative Bedside Urine Urobilinogen - Negative Bedside Urine Nitrite - Negative Bedside Urine Leukocytes - Negative Esterase Discharge Plan Departure Patient Disposition: Admitted As Inpatient Clinical Impression: Acute appendicitis Qualifiers: Acute appendicitis type: unspecified acute appendicitis type Qualified Code(s): K35.80 - Unspecified acute appendicitis Discharge Date/Time: 11/27/18 19:28 Interventions: ED Discharge Assessment Last Done: 11/27/18 19:28 Admit Date/Time: 11/27/18 19:11 Admit Provider: Keith Young <Singh Ramirez DO - Last Filed: 11/28/18 07:37> Cosign ED Attending Roshan Attestation: I was available for consultation during this patient's emergency department encounter
--- NOTE | 2018-11-27 23:50 | ED_ITS ---
HPI - Abdominal Pain <[facility] - Last Filed: 11/28/18 00:06> General Chief Complaint: Abdominal Pain Stated Complaint: FEVER LOWER RIGHT PAIN Time Seen by Provider: 11/27/18 17:34 Source: patient Mode of arrival: ambulatory Limitations: no limitations History of Present Illness HPI narrative: This is a 48-year-old female, non smoker, presents with her spouse with chief complain of right lower quadrant pain with decreased appetite, fever, chills, nausea and vomiting once. The patient reports onset of her discomfort started after the midnight and mid upper abdomen discomfort now has radiated to right lower quadrant. She reports abdominal bloatedness, pain increases with any movements, laughing, or even cough. She reports her appetite has decreased and her last solid food was last night. Her T-max at home was 102 and had taken ibuprofen for this. She reports prior history of with bilateral tubal ligation. She also reports some urinary difficulty. Related Data Home Medications Medication Instructions Recorded Confirmed cetirizine 10 mg PO DAILY #0 08/15/16 11/27/18 multivitamin [Multiple Vitamins] 1 tab PO DAILY #0 08/15/16 11/27/18 flaxseed oil 1 dose PO DAILY 11/27/18 11/27/18 fluticasone propionate [Flonase 1 puff INTRANASAL DAILY 11/27/18 11/27/18 Allergy Relief] ibuprofen 1 dose PO PRN PRN 11/27/18 11/27/18 Allergies Allergy/AdvReac Type Severity Reaction Status Date / Time No Known Drug Allergies Allergy Verified 11/27/18 19:48 Review of Systems <[facility] - Last Filed: 11/28/18 00:06> Review of Systems General: See HPI HEENT: Denies sinus pain, ear pain, sore throat, difficulty swallowing, dizziness. Respiratory: Denies dyspnea, cough, wheezing, hemoptysis, sputum. Cardiovascular: Denies chest pain, palpitations, orthopnea, edema. Gastrointestinal: See HPI : Reports dysuria. Denies frequency, incontinence, hematuria, urinary retention. Musculoskeletal: Denies weakness, joint pain or bony pain. Skin: Denies rash, skin lesions, or other. Neurologic: Denies weakness, headache, numbness, change in speech, confusion, seizures, incoordination. Psychiatric: No concerning psychosocial issues. 12-point review of systems is negative except for those stated above. PFSH <ALVARO Viera - Last Filed: 11/28/18 00:06> Medical History (Updated 11/27/18 @ 23:53 by ALVARO Viera) Menorrhagia (Resolved) Diabetes, gestational (Acute) Hyperlipidemia (Acute) Impaired vision (Acute) Surgical History (Updated 11/27/18 @ 23:53 by ALVARO Viera) History of endometrial ablation (Chronic) Status post delivery (07/08/11) Status post tubal ligation (07/08/11) Social History household members: spouse and children Smoking Status: Never smoker alcohol intake: current Social History household members: spouse and children Smoking Status: Never smoker alcohol intake: current Exam <ALVARO Viera - Last Filed: 11/28/18 00:06> Narrative Exam Narrative: General appearance: well developed, well nourished, in no acute distress. Head: normocephalic, atraumatic, no scalp lesions, non-tender. Eye: pupil equal, round. EOMI. Nose: nares patent. Oral: mucosa moist. Neck/Thyroid: neck supple, full range of motion, no visible masses. Skin: no suspicious rashes, lesions over visible areas. Warm and dry. Heart: S1, S2. Normal heart rate and regular rhythm. Lungs: Lung sounds are clear to auscultate bilaterally. Breathing even and unlabored. No stridor. No accessory muscles used. Chest: normal shape and expansion. Abdomen: Neurologic: alert and oriented. Cognitive exam, [employer] and PNS grossly intact on informal exam. Psych: good eye contact, normal affect. Initial Vital Signs Initial Vital Signs: Vital Signs Temperature 100.8 F H 11/27/18 17:19 Pulse Rate 94 H 11/27/18 17:19 Respiratory Rate 18 11/27/18 17:19 Blood Pressure 173/100 H 11/27/18 17:19 Pulse Oximetry 100 11/27/18 17:19 GI Inspection: normal to inspection, non-distended and no visible herniation Palpation: soft, guarding (Positive rebound tenderness in right lower quadrant), No mass and tender Auscultation: normal bowel sounds <Singh Ramirez DO - Last Filed: 11/28/18 07:37> Initial Vital Signs Initial Vital Signs: Vital Signs Temperature 100.8 F H 11/27/18 17:19 Pulse Rate 94 H 11/27/18 17:19 Respiratory Rate 18 11/27/18 17:19 Blood Pressure 173/100 H 11/27/18 17:19 Pulse Oximetry 100 11/27/18 17:19 Course <Omari StylesALVARO - Last Filed: 11/28/18 00:06> Orders Ordered: Acetaminophen (Tylenol) 650 mg PO Q6HR PRN PRN Reason: As Needed for Fever/Mild Pain Hydrocodone Bitart/Acetaminophen (Maxie 5/325) 1 tab PO Q4HR PRN PRN Reason: Pain, Moderate (4-6) Calcium Carbonate (Tums) 1,000 mg PO Q4HR PRN PRN Reason: Dyspepsia Fentanyl (Sublimaze) 50 mcg IV Q5MIN PRN PRN Reason: Pain, Moderate (4-6) Hydromorphone HCl (Dilaudid) 0.5 mg IV Q5MIN PRN PRN Reason: Pain, Moderate (4-6) Last Admin: 11/27/18 21:11 Dose: 0.5 mg Lactated Ringer's (Lactated Ringers) 1,000 mls @ 42 mls/hr IV CONT [facility] Last Admin: 11/27/18 19:30 Dose: 42 mls/hr Dextrose/Sodium Chloride (Dextrose 5%-0.45% Ns) 1,000 mls @ 100 mls/hr IV CONT [facility] Last Admin: 11/27/18 23:30 Dose: 100 mls/hr Meperidine HCl (Demerol) 25 mg IV Q5MIN PRN PRN Reason: Pain or shivering Metoclopramide HCl (Reglan) 10 mg IV NOW PRN PRN Reason: Nausea And Vomiting Morphine Sulfate (Morphine) 2 mg IV Q4HR PRN PRN Reason: Pain, Moderate (4-6) Ondansetron HCl (Zofran) 4 mg IV NOW PRN PRN Reason: Nausea And Vomiting Ondansetron HCl (Zofran) 4 mg IV Q8HR PRN PRN Reason: Nausea And Vomiting Discontinued Medications Bupivacaine HCl/Epinephrine Bitart (Sensorcaine 0.5% W/ Epi (Pf)) 30 ml INJ NOW ONE Stop: 11/27/18 20:35 Last Admin: 11/27/18 20:39 Dose: 30 ml Sodium Chloride 1,000 ml/ (Bacitracin 50,000 unit) 0 ml IRR NOW ONE Stop: 11/27/18 20:35 Last Admin: 11/27/18 20:34 Dose: 1,000 irrig.soln Sodium Chloride (Normal Saline 0.9%) 1,000 mls @ 1,000 mls/hr IV BOLUS ONE Stop: 11/27/18 18:31 Last Infusion: 11/27/18 19:14 Dose: 0 mls/hr Admin: 11/27/18 17:49 Dose: 1,000 mls/hr Piperacillin/Tazobactam/Dextrose (Zosyn) 3.375 gm in 50 mls @ 100 mls/hr IV NOW ONE Stop: 11/27/18 19:30 Last Infusion: 11/27/18 19:40 Dose: 0 mls/hr Admin: 11/27/18 19:11 Dose: 100 mls/hr Vital Signs - 8 hr 11/28/18 00:00 11/28/18 06:00 Temperature 98.3 F 98.1 F Pulse Rate 69 61 Respiratory Rate 16 16 Blood Pressure 110/66 108/65 Pulse Oximetry 98 98 <Singh Ramirez, - Last Filed: 11/28/18 07:37> Orders Ordered: Acetaminophen (Tylenol) 650 mg PO Q6HR PRN PRN Reason: As Needed for Fever/Mild Pain Hydrocodone Bitart/Acetaminophen (Maxie 5/325) 1 tab PO Q4HR PRN PRN Reason: Pain, Moderate (4-6) Calcium Carbonate (Tums) 1,000 mg PO Q4HR PRN PRN Reason: Dyspepsia Fentanyl (Sublimaze) 50 mcg IV Q5MIN PRN PRN Reason: Pain, Moderate (4-6) Hydromorphone HCl (Dilaudid) 0.5 mg IV Q5MIN PRN PRN Reason: Pain, Moderate (4-6) Last Admin: 11/27/18 21:11 Dose: 0.5 mg Lactated Ringer's (Lactated Ringers) 1,000 mls @ 42 mls/hr IV CONT [facility] Last Admin: 11/27/18 19:30 Dose: 42 mls/hr Dextrose/Sodium Chloride (Dextrose 5%-0.45% Ns) 1,000 mls @ 100 mls/hr IV CONT [facility] Last Admin: 11/27/18 23:30 Dose: 100 mls/hr Meperidine HCl (Demerol) 25 mg IV Q5MIN PRN PRN Reason: Pain or shivering Metoclopramide HCl (Reglan) 10 mg IV NOW PRN PRN Reason: Nausea And Vomiting Morphine Sulfate (Morphine) 2 mg IV Q4HR PRN PRN Reason: Pain, Moderate (4-6) Ondansetron HCl (Zofran) 4 mg IV NOW PRN PRN Reason: Nausea And Vomiting Ondansetron HCl (Zofran) 4 mg IV Q8HR PRN PRN Reason: Nausea And Vomiting Discontinued Medications Bupivacaine HCl/Epinephrine Bitart (Sensorcaine 0.5% W/ Epi (Pf)) 30 ml INJ NOW ONE Stop: 11/27/18 20:35 Last Admin: 11/27/18 20:39 Dose: 30 ml Sodium Chloride 1,000 ml/ (Bacitracin 50,000 unit) 0 ml IRR NOW ONE Stop: 11/27/18 20:35 Last Admin: 11/27/18 20:34 Dose: 1,000 irrig.soln Sodium Chloride (Normal Saline 0.9%) 1,000 mls @ 1,000 mls/hr IV BOLUS ONE Stop: 11/27/18 18:31 Last Infusion: 11/27/18 19:14 Dose: 0 mls/hr Admin: 11/27/18 17:49 Dose: 1,000 mls/hr Piperacillin/Tazobactam/Dextrose (Zosyn) 3.375 gm in 50 mls @ 100 mls/hr IV NOW ONE Stop: 11/27/18 19:30 Last Infusion: 11/27/18 19:40 Dose: 0 mls/hr Admin: 11/27/18 19:11 Dose: 100 mls/hr Vital Signs - 8 hr 11/28/18 00:00 11/28/18 06:00 Temperature 98.3 F 98.1 F Pulse Rate 69 61 Respiratory Rate 16 16 Blood Pressure 110/66 108/65 Pulse Oximetry 98 98 MDM - Abdominal Pain <Omari MezaMariluPoonamALVARO - Last Filed: 11/28/18 00:06> Differential Diagnosis Differential diagnosis: Likely abdominal pain, acute appendicitis, calculus of kidney, small bowel obstruction and other (UTI, ovarian cyst) Medical Records Attestation: I reviewed the patient's medical records. Lab Data Attestation: I reviewed the patient's lab results. Result diagrams: 11/27/18 17:40 11/27/18 17:40 Lab Results 11/27/18 11/27/18 Range/Units 17:40 17:40 WBC 14.8 H (4.5-11.0) X10^3/uL RBC 4.44 (4.0-5.2) X10^6/uL Hgb 13.3 (12.0-16.0) g/dL Hct 38.7 (36-46) % MCV 87.2 (80-100) fL MCH 29.9 (26-34) PG MCHC 34.3 (30-36) % RDW 13.0 (11.6-14.8) % Plt Count 252 (150-400) X10^3/uL Neut % (Auto) 84.8 H (50-75) % Lymph % (Auto) 9.0 L (25-40) % [place] % (Auto) 5.7 (3-14) % Eos % (Auto) 0.1 L (2-4) % Baso % (Auto) 0.4 (0-2) % Neut # (Auto) 12918 H (5447-1165) /uL Lymph # (Auto) 1300 (7965-7910) /uL [place] # (Auto) 900 (0-900) /uL Eos # (Auto) 0 (0-450) /uL Baso # (Auto) 100 (0-100) /uL Sodium 136 L (137-145) mmol/L Potassium 3.7 (3.4-5.1) mmol/L Chloride 100 (98-107) mmol/L Carbon Dioxide 25 (22-32) mmol/L BUN 10 (7-17) mg/dL Creatinine 0.60 (0.52-1.04) mg/dL Estimated GFR > 60.0 (>60) mL/min BUN/Creatinine Ratio 16.7 (6-22) Glucose 103 H (70-100) mg/dL Calcium 9.4 (8.4-10.2) mg/dL Total Bilirubin 0.8 (0.2-1.3) mg/dL AST 18 (14-36) IU/L ALT 7 L (9-52) IU/L Alkaline Phosphatase 63 (38-126) U/L Total Protein 8.2 (6.3-8.2) g/dL Albumin 4.5 (3.5-5.0) g/dL Globulin 3.7 (1.7-4.1) g/dL Albumin/Globulin Ratio 1.2 (1.0-2.8) Lipase 50 (23-300) U/L Point of care testing: Point of Care Testing Test Results Negative Urine Dip Bedside Urine Glucose Negative Bedside Urine Bilirubin - Negative Bedside Urine Ketone - Negative Urine Specific [place] 1.015 Bedside Urine Occult Blood - Negative Bedside Urine pH 6.5 Bedside Urine Protein - Negative Bedside Urine Urobilinogen - Negative Bedside Urine Nitrite - Negative Bedside Urine Leukocytes - Negative Esterase Imaging Data CT scan - abdomen: Radiologist's impression: [place] [address] CT Scan Report Signed Patient: Lila Morales JMR#: [id number] : 1970Acct:[id number] Age/Sex: 48 / FDate of Service: 11/27/18 Loc: ED Accession Number: [id number] Procedure: CT abdomen pelvis w con Ordering Provider: Omari Styles PROCEDURE: CT ABDOMEN PELVIS W CON INDICATIONS: RLQ pain with nausea and fever TECHNIQUE: After the administration of intravenous contrast, 5 mm thick sections acquired from the diaphragm to the symphysis. 5 mm coronal and sagittal reformats were acquired. For radiation dose reduction, the following was used: automated exposure control, adjustment of mA and/or kV according to patient size. COMPARISON: None. FINDINGS: Image quality: Excellent. ABDOMEN: Lung bases: Lung bases are clear. Heart size is normal. Solid organs: Liver is normal in size and enhancement. Gallbladder appears normal. Biliary system is non dilated. Pancreas enhances normally. Spleen is normal in size and enhancement. No adrenal nodules. Kidneys demonstrate normal size and enhancement, without hydronephrosis. Peritoneum and bowel: Bowel loops demonstrate normal wall thickness and caliber. No free fluid or air. Nodes and vessels: No retroperitoneal or mesenteric adenopathy by size criteria. Aorta and inferior vena cava are normal in size. Miscellaneous: No ventral hernias. PELVIS: Genitourinary: Bladder wall thickness is normal. Miscellaneous: No inguinal hernias or adenopathy. At the right lower quadrant there is acute appendicitis with 2 adjacent appendicoliths immediately beyond the base of the appendix and appendiceal diameter is relatively larger 1.2 cm, fluid filled with periappendiceal edema but without evidence of appendiceal perforation. Bones: No suspicious bony lesions. No vertebral body compression fractures. IMPRESSION: Acute appendicitis, appendicoliths are present which increase the risk of perforation. However, no evidence of periappendiceal abscess is present. Findings immediately called to the ordering health care provider. Dictated by: Blane Alvarez M.D. on 11/27/2018 at 18:57 Approved by: Blane Alvarez M.D. on 11/27/2018 at 18:58 [facility] Narrative Medical decision making narrative: This is a pleasant 48-year-old female complaining of right lower quadrant pain with nausea and vomiting x1, fever, chills, decreased appetite since the pain started after the midnight this morning. She also reports urinary discomfort. The CBC indicates elevated white count with neutrophil. The chemistry test and urine test were unremarkable. CT scan shows acute appendicitis with appendicoliths and appendiceal diameter is relatively larger in 1.2 cm with fluid filled periappendiceal edema. Her phys ical exam is consistent with acute appendicitis. There was no perforation was noted in CT scan. Radiologist, Dr. Alvarez, called the ER to inform the findings. Dr. Recio was consulted over the phone and discussed findings. Patient was started on IV Zosyn as instructed by Dr. Recio. Dr. Recio kindly accepted her care and to take her to surgery. <Singh Ramirez, DO - Last Filed: 11/28/18 07:37> Lab Data Lab Results 11/27/18 11/27/18 Range/Units 17:40 17:40 WBC 14.8 H (4.5-11.0) X10^3/uL RBC 4.44 (4.0-5.2) X10^6/uL Hgb 13.3 (12.0-16.0) g/dL Hct 38.7 (36-46) % MCV 87.2 (80-100) fL MCH 29.9 (26-34) PG MCHC 34.3 (30-36) % RDW 13.0 (11.6-14.8) % Plt Count 252 (150-400) X10^3/uL Neut % (Auto) 84.8 H (50-75) % Lymph % (Auto) 9.0 L (25-40) % [place] % (Auto) 5.7 (3-14) % Eos % (Auto) 0.1 L (2-4) % Baso % (Auto) 0.4 (0-2) % Neut # (Auto) 78143 H (8859-0634) /uL Lymph # (Auto) 1300 (7902-2782) /uL [place] # (Auto) 900 (0-900) /uL Eos # (Auto) 0 (0-450) /uL Baso # (Auto) 100 (0-100) /uL Sodium 136 L (137-145) mmol/L Potassium 3.7 (3.4-5.1) mmol/L Chloride 100 (98-107) mmol/L Carbon Dioxide 25 (22-32) mmol/L BUN 10 (7-17) mg/dL Creatinine 0.60 (0.52-1.04) mg/dL Estimated GFR > 60.0 (>60) mL/min BUN/Creatinine Ratio 16.7 (6-22) Glucose 103 H (70-100) mg/dL Calcium 9.4 (8.4-10.2) mg/dL Total Bilirubin 0.8 (0.2-1.3) mg/dL AST 18 (14-36) IU/L ALT 7 L (9-52) IU/L Alkaline Phosphatase 63 (38-126) U/L Total Protein 8.2 (6.3-8.2) g/dL Albumin 4.5 (3.5-5.0) g/dL Globulin 3.7 (1.7-4.1) g/dL Albumin/Globulin Ratio 1.2 (1.0-2.8) Lipase 50 (23-300) U/L Point of care testing: Point of Care Testing Test Results Negative Urine Dip Bedside Urine Glucose Negative Bedside Urine Bilirubin - Negative Bedside Urine Ketone - Negative Urine Specific [place] 1.015 Bedside Urine Occult Blood - Negative Bedside Urine pH 6.5 Bedside Urine Protein - Negative Bedside Urine Urobilinogen - Negative Bedside Urine Nitrite - Negative Bedside Urine Leukocytes - Negative Esterase Discharge Plan Departure Patient Disposition: Admitted As Inpatient Clinical Impression: Acute appendicitis Qualifiers: Acute appendicitis type: unspecified acute appendicitis type Qualified Code(s): K35.80 - Unspecified acute appendicitis Discharge Date/Time: 11/27/18 19:28 Interventions: ED Discharge Assessment Last Done: 11/27/18 19:28 Admit Date/Time: 11/27/18 19:11 Admit Provider: Keith Young <Singh Ramirez DO - Last Filed: 11/28/18 07:37> Cosign ED Attending Roshan Attestation: I was available for consultation during this patient's emergency department encounter
[2018-11-28] VITALS: BP 110/66; PULSE 69; RESP 16; TEMP 36.8; O2SAT 98
[2018-11-28 06:00] VITALS: BP 108/65; PULSE 61; RESP 16; TEMP 36.7; O2SAT 98
[2018-11-28 08:42] VITALS: BP 103/58; PULSE 53; RESP 16; TEMP 37.2; O2SAT 98
[2018-11-28] MEDS: DEXTROSE 5%-0.45% NS 1,000 ML 100 ML IV (08:58)
[2018-11-28 09:06] VITALS: O2SAT 99
--- NOTE | 2018-11-28 11:04 | PC.NURSE ---
Shift summary: Dozing intermittently. Alert and oriented X3 when awake. Tolerating full liquid diet without issue. Dressing to RLQ abd C/D/I. BT+, hypoactive. Denies passing any flatus this morning. Abd soft, tender. Reports abd pain/discomfort tolerable, rates it 3/10 and understands she can ask this RN for pain meds PRN. Denies chills, body aches or feeling feverish. IVF per orders, site in L AC WNL. Voiding without issue. Able to make needs known and calls appropriately. Light in reach, bed alarm on.
[2018-11-28 11:21] VITALS: BP 102/60; PULSE 57; RESP 14; TEMP 37.2; O2SAT 99
[2018-11-28] MEDS: ACETAMINOPHEN 325 MG TABLET 650 MG PO (13:31)
--- NOTE | 2018-11-28 13:52 | PM.DS.1 ---
History of Present Illness Date Patient Seen: 11/28/18 Time Patient Seen: 13:53 Chief complaint: FEVER LOWER RIGHT PAIN Narrative: Patient is woman admitted with findings suggestive of acute appendicitis. Discharge Providers Date of admission: 11/27/18 19:11 Discharge Date: 11/28/18 Discharge provider: Charlie Pruitt MD Summary Discharge Diagnosis: Acute appendicitis Hospital Course: She underwent an open appendectomy. She was tolerating general diet at the time of discharge. She was discharged on oral pain medicine and a few more days of p.o. antibiotics. She is to follow up in the office. Status at Discharge Cognitive/behavioral status at discharge: oriented Functional status at discharge: independent ambulation Overall status at discharge: patient is progressing back to baseline Exam Vital Signs (past 8 hours): - 11/28/18 06:00 11/28/18 08:42 11/28/18 09:06 Temperature 98.1 F 99.0 F Pulse Rate 61 53 L Respiratory Rate 16 16 Blood Pressure 108/65 103/58 L Pulse Oximetry 98 98 99 11/28/18 11:21 Temperature 98.9 F Pulse Rate 57 L Respiratory Rate 14 Blood Pressure 102/60 Pulse Oximetry 99 Oxygen Delivery Method Room Air Oxygen Flow Rate 0 Narrative Exam Narrative: Lungs are clear. Heart regular rate and rhythm without murmur gallop. Abdomen is soft. Tender in the area of the incision. Dressing is dry and intact. Objective Labs Result Diagrams: 11/27/18 17:40 11/27/18 17:40 Labs: Laboratory Results - last 24 hr 11/27/18 11/27/18 17:40 17:40 WBC 14.8 H RBC 4.44 Hgb 13.3 Hct 38.7 MCV 87.2 MCH 29.9 MCHC 34.3 RDW 13.0 Plt Count 252 Neut % (Auto) 84.8 H Lymph % (Auto) 9.0 L [place] % (Auto) 5.7 Eos % (Auto) 0.1 L Baso % (Auto) 0.4 Neut # (Auto) 94005 H Lymph # (Auto) 1300 [place] # (Auto) 900 Eos # (Auto) 0 Baso # (Auto) 100 Sodium 136 L Potassium 3.7 Chloride 100 Carbon Dioxide 25 BUN 10 Creatinine 0.60 Estimated GFR > 60.0 BUN/Creatinine Ratio 16.7 Glucose 103 H Calcium 9.4 Total Bilirubin 0.8 AST 18 ALT 7 L Alkaline Phosphatase 63 Total Protein 8.2 Albumin 4.5 Globulin 3.7 Albumin/Globulin Ratio 1.2 Lipase 50 Discharge Plan Discharge Plan Patient Disposition: Home Discharge comment: You had an acute appendicitis. Discharge Med Rec/Prescriptions Prescriptions: New amoxicillin-pot clavulanate [Augmentin] 875-125 mg tablet 1 tab PO BID Qty: 8 RF: 0 oxycodone 5 mg tablet 5 mg PO Q4-6H PRN (Reason: painful procedure) Qty: 14 RF: 0 Continued multivitamin [Multiple Vitamins] 1 EACH tablet 1 tab PO DAILY Qty: 0 RF: 0 cetirizine 10 MG tablet 10 mg PO DAILY Qty: 0 RF: 0 ibuprofen 200 mg Tablet 1 dose PO PRN PRN (Reason: pain) RF: 0 fluticasone propionate [Flonase Allergy Relief] 50 mcg/actuation [place],Suspension 1 puff intranasal DAILY RF: 0 flaxseed oil 1 dose PO DAILY RF: 0 Follow up/Referrals: Charlie Pruitt MD [Physician] - 1 Week (Please call our office and make an appointment to see me in about 10 days. If you need to reach a doctor after hours please call our office and hold through the message. At the end you be connected to the page wash rack operator.) Provider Discharge Instructions Diet: Diet as Tolerated Activity: Do not drive until pain free off medication. You may walk. No other exercise. Avoid pool or tub for at least 2 weeks. Skin/Wound/Dressing Care Dressing: You may remove the dressing tomorrow and shower. At that time you may E replace the dressing if you so desire. It is not absolutely necessary unless it is draining. Visit Report/Discharge Packet Instructions: DI for an Appendectomy Discharge Data Attending Provider: Keith Young Admit Date/Time: 11/27/18 19:11 Quality VTE Deep Vein Thrombosis/Pulmonary Embolism Present on Admission: No
--- NOTE | 2018-11-28 13:55 | P.DS_ITS ---
History of Present Illness Date Patient Seen: 11/28/18 Time Patient Seen: 13:53 Chief complaint: FEVER LOWER RIGHT PAIN Narrative: Patient is woman admitted with findings suggestive of acute appendicitis. Discharge Providers Date of admission: 11/27/18 19:11 Discharge Date: 11/28/18 Discharge provider: Charlie Pruitt MD Summary Discharge Diagnosis: Acute appendicitis Hospital Course: She underwent an open appendectomy. She was tolerating general diet at the time of discharge. She was discharged on oral pain medicine and a few more days of p.o. antibiotics. She is to follow up in the office. Status at Discharge Cognitive/behavioral status at discharge: oriented Functional status at discharge: independent ambulation Overall status at discharge: patient is progressing back to baseline Exam Vital Signs (past 8 hours): - 11/28/18 06:00 11/28/18 08:42 11/28/18 09:06 Temperature 98.1 F 99.0 F Pulse Rate 61 53 L Respiratory Rate 16 16 Blood Pressure 108/65 103/58 L Pulse Oximetry 98 98 99 11/28/18 11:21 Temperature 98.9 F Pulse Rate 57 L Respiratory Rate 14 Blood Pressure 102/60 Pulse Oximetry 99 Oxygen Delivery Method Room Air Oxygen Flow Rate 0 Narrative Exam Narrative: Lungs are clear. Heart regular rate and rhythm without murmur gallop. Abdomen is soft. Tender in the area of the incision. Dressing is dry and intact. Objective Labs Result Diagrams: 11/27/18 17:40 11/27/18 17:40 Labs: Laboratory Results - last 24 hr 11/27/18 11/27/18 17:40 17:40 WBC 14.8 H RBC 4.44 Hgb 13.3 Hct 38.7 MCV 87.2 MCH 29.9 MCHC 34.3 RDW 13.0 Plt Count 252 Neut % (Auto) 84.8 H Lymph % (Auto) 9.0 L [place] % (Auto) 5.7 Eos % (Auto) 0.1 L Baso % (Auto) 0.4 Neut # (Auto) 91700 H Lymph # (Auto) 1300 [place] # (Auto) 900 Eos # (Auto) 0 Baso # (Auto) 100 Sodium 136 L Potassium 3.7 Chloride 100 Carbon Dioxide 25 BUN 10 Creatinine 0.60 Estimated GFR > 60.0 BUN/Creatinine Ratio 16.7 Glucose 103 H Calcium 9.4 Total Bilirubin 0.8 AST 18 ALT 7 L Alkaline Phosphatase 63 Total Protein 8.2 Albumin 4.5 Globulin 3.7 Albumin/Globulin Ratio 1.2 Lipase 50 Discharge Plan Discharge Plan Patient Disposition: Home Discharge comment: You had an acute appendicitis. Discharge Med Rec/Prescriptions Prescriptions: New amoxicillin-pot clavulanate [Augmentin] 875-125 mg tablet 1 tab PO BID Qty: 8 RF: 0 oxycodone 5 mg tablet 5 mg PO Q4-6H PRN (Reason: painful procedure) Qty: 14 RF: 0 Continued multivitamin [Multiple Vitamins] 1 EACH tablet 1 tab PO DAILY Qty: 0 RF: 0 cetirizine 10 MG tablet 10 mg PO DAILY Qty: 0 RF: 0 ibuprofen 200 mg Tablet 1 dose PO PRN PRN (Reason: pain) RF: 0 fluticasone propionate [Flonase Allergy Relief] 50 mcg/actuation [place],Suspension 1 puff intranasal DAILY RF: 0 flaxseed oil 1 dose PO DAILY RF: 0 Follow up/Referrals: Charlie Pruitt MD [Physician] - 1 Week (Please call our office and make an appointment to see me in about 10 days. If you need to reach a doctor after hours please call our office and hold through the message. At the end you be connected to the page dry end operator.) Provider Discharge Instructions Diet: Diet as Tolerated Activity: Do not drive until pain free off medication. You may walk. No other exercise. Avoid pool or tub for at least 2 weeks. Skin/Wound/Dressing Care Dressing: You may remove the dressing tomorrow and shower. At that time you may E replace the dressing if you so desire. It is not absolutely necessary unless it is draining. Visit Report/Discharge Packet Instructions: DI for an Appendectomy Discharge Data Attending Provider: Keith Young Admit Date/Time: 11/27/18 19:11 Quality VTE Deep Vein Thrombosis/Pulmonary Embolism Present on Admission: No
--- NOTE | 2018-11-28 14:13 | CM.DPNOTE ---
Initial DCP Assessment Note (Brief): Pt is a 48 yo female, resident of [place]. Pt POD#1 from an open appendectomy and being DC today by Dr Pruitt. PCP: Unknown Payer: Gael Met w/pt this morning, explained role. Pt lives w/spouse and twin 7 yo boys in [place]. Pt says her can assist her once home and he and her mother in law can assist. P: DC today, home w/family via pov. Close outpt f/u. RICK Lofton
[2018-11-28 16:00] VITALS: BP 122/68; PULSE 60; RESP 16; TEMP 37.3; O2SAT 100
--- NOTE | 2019-01-08 11:53 | PC.NURSE ---
Late entry: Lactated Ringers stop time 11/28 3244
== END 2018-11-28 16:24 | disposition home or self-care (01) ==
LOC: ED 17:49 → AC 19:11
PROVIDERS: Emergency Medicine; Admitting Provider Surgery; Emergency Provider Nurse Practitioner Family; Visit Provider Surgery
PROC: (CPT 44950; principal; 2018-11-27 19:35)
DX: K35.80 Unspecified acute appendicitis (principal); R10.31 Right lower quadrant pain; E78.5 Hyperlipidemia, unspecified
CPT/HCPCS: 44950; 36591; 74177; 80053; 81003; 81025; 83690; 85025; 87070; 87075; 87205; 96361; 96365; 96375; 99220; 99283; 99285; G0378; J0330; J1100; J1170; J1885; J2405; J2543; J2704; J3010; Q9967

== ENCOUNTER 2021-06-25 09:39 | Emergency (ER) | payer BC, SELFPAY ==
[2021-06-25] VITALS (13 sets, daily range): BP systolic 152–224; BP diastolic 87–112; PULSE 64–86; RESP 13–20; TEMP 36.7; O2SAT 97–99; BMI 24.2; BMI 26.6
--- NOTE | 2021-06-25 10:01 | DI.RAD.S_ITS ---
PROCEDURE: XR CHEST 1V INDICATIONS: hypertension TECHNIQUE: One view of the chest was acquired. COMPARISON: None. FINDINGS: Surgical changes and devices: None. Lungs and pleura: Lungs are clear. No pleural effusions or pneumothorax. Mediastinum: Mediastinal contours appear normal. Heart size is normal. Bones and chest wall: No suspicious bony lesions. Overlying soft tissues appear unremarkable. IMPRESSION: No acute process. Dictated by: Shireen Beavers M.D. on 06/25/2021 at 10:26 Approved by: Shireen Beavers M.D. on 06/25/2021 at 10:26
--- NOTE | 2021-06-25 10:01 | ED.GENADULT ---
HPI - General Adult General Chief complaint: Hypertension Stated complaint: high blood pressure 117/193, shaky Time Seen by Provider: 06/25/21 10:01 Source: patient Mode of arrival: Ambulatory History of Present Illness HPI narrative: The patient is a 50-year-old female with history of allergies and diet-controlled hypertension presenting today with nasal congestion and elevated blood pressure. She says for the last 4 days she has had increased nasal pressure and headache. She has been taking Afrin and Sudafed for it but continues to have pressure. She denies any fever or neck pain. She has some greenish discharge. She has been using saline as well. Today she noticed that her blood pressure was extremely high in came to the emergency department. She has only used Afrin on the neuro is on has not used it for a couple of days. She continues to use started fed and Zyrtec. She denies any chest pain shortness of breath visual changes nausea or vomiting Related Data Home Medications Medication Instructions Recorded Confirmed cetirizine 10 mg tablet 10 mg PO DAILY #0 08/15/16 12/08/18 multivitamin (Multiple Vitamins) 1 tab PO DAILY #0 08/15/16 12/08/18 flaxseed oil 1 dose PO DAILY 11/27/18 12/08/18 fluticasone propionate 50 1 puff INTRANASAL DAILY 11/27/18 12/08/18 mcg/actuation nasal spray,suspension (Flonase Allergy Relief) ibuprofen 200 mg tablet 1 dose PO PRN PRN 11/27/18 12/08/18 Previous Rx's Medication Instructions Recorded amoxicillin 875 mg-potassium 1 tab PO BID #8 tab 11/28/18 clavulanate 125 mg tablet (Augmentin) oxycodone 5 mg tablet 5 mg PO Q4-6H PRN #14 tab 11/28/18 Allergies Allergy/AdvReac Type Severity Reaction Status Date / Time No Known Drug Allergies Allergy Verified 06/25/21 09:51 Review of Systems Review of Systems Narrative: GENERAL: Denies chills, fatigue, malaise, fever, sweats, travel HEENT: +see HPI RESPIRATORY: Denies dyspnea, cough, wheezing, hemoptysis, sputum. CARDIOVASCULAR: Denies chest pain, palpitations, orthopnea, edema GASTROINTESTINAL: Denies nausea, vomiting, abdominal pain, diarrhea, constipation, melena. : Denies dysuria, frequency, incontinence, hematuria, urinary retention, flank pain. MUSCULOSKELETAL: Denies weakness, joint pain, or bony pain SKIN: No rash, no erythema, no pruritus NEUROLOGIC: Headache, Denies weakness, dizziness,, numbness, change in speech, confusion PSYCHIATRIC: No concerning psychosocial issues. 12 point review of systems is negative except for those stated above and HPI Patient History Medical History (Updated 06/25/21 @ 12:01 by Solange Acuña DO) Diabetes, gestational Hyperlipidemia Impaired vision Menorrhagia Surgical History (Updated 11/27/18 @ 23:53 by ALVARO Viera) History of endometrial ablation Status post delivery (07/08/11) Status post tubal ligation (07/08/11) Social History household members: spouse and children Smoking Status: Never smoker alcohol intake: current Smoking Status: Never smoker alcohol intake frequency: holidays/special occasions only Substance Use Type: does not use Exam Initial Vital Signs Initial Vital Signs: Vital Signs Temperature 98.0 F 06/25/21 09:44 Pulse Rate 86 06/25/21 09:44 Respiratory Rate 18 06/25/21 09:44 Blood Pressure 224/111 H 06/25/21 09:44 Pulse Oximetry 99 06/25/21 09:44 GENERAL: Alert well-appearing 50-year-old female no acute distress HEENT: Head atraumatic,EOMI, pupils reactive, face symmetric, tender over frontal and maxillary sinuses no significant swelling face is symmetric neck is supple without meningeal signs no cervical lymphadenopathy CARDIOVASCULAR: Regular rate and rhythm without murmurs, rubs or gallops. RESPIRATORY: Breath sounds equal bilaterally, no wheezes rales or rhonchi. ABDOMEN: Soft, nontender. Normoactive bowel sounds all 4 quadrants. No guarding or rebound. EXTREMITIES: Normal range of motion, no clubbing or edema. Neurovascularly intact NEUROLOGICAL: Alert and oriented x4.Normal gait and speech. SKIN: Warm, dry, no laceration, no petechiae, no rashes or lesions. Course Orders Ordered: ED Orders 06/25/21 10:10 Complete Blood Count AUTO DIFF Stat Comprehensive Metabolic Panel Stat Lipase Stat Troponin & CK Cardiac Panel Stat Discontinued Medications Ketorolac Tromethamine (Ketorolac 30 Mg/Ml Vial) 15 mg IV NOW ONE Stop: 06/25/21 11:35 Last Admin: 06/25/21 11:45 Dose: 15 mg Documented by: DONAVAN Vital Signs Vital signs: Vital Signs - 8 hr 06/25/21 11:12 06/25/21 11:30 06/25/21 12:00 Pulse Rate 68 71 64 Respiratory Rate 17 17 13 Blood Pressure 157/91 H 153/87 H Pulse Oximetry 99 99 98 06/25/21 12:24 06/25/21 12:31 Pulse Rate 68 69 Respiratory Rate 17 16 Blood Pressure 152/92 H 152/92 H Pulse Oximetry 98 97 Medical Decision Making Lab Data Result diagrams: 06/25/21 10:10 06/25/21 10:10 Labs: Lab Results 06/25/21 06/25/21 Range/Units 10:10 10:10 WBC 6.6 (4.5-11.0) X10^3/uL RBC 4.58 (4.0-5.2) X10^6/uL Hgb 13.6 (12.0-16.0) g/dL Hct 39.5 (36-46) % MCV 86.1 (80-100) fL MCH 29.6 (26-34) PG MCHC 34.4 (30-36) % RDW 12.9 (11.6-14.8) % Plt Count 301 (150-400) X10^3/uL Neut % (Auto) 61.2 (50-75) % Lymph % (Auto) 32.4 (25-40) % [place] % (Auto) 4.9 (3-14) % Eos % (Auto) 1.0 L (2-4) % Baso % (Auto) 0.5 (0-2) % Neut # (Auto) 4000 (1013-5869) /uL Lymph # (Auto) 2100 (5944-8380) /uL [place] # (Auto) 300 (0-900) /uL Eos # (Auto) 100 (0-450) /uL Baso # (Auto) 0 (0-100) /uL Sodium 139 (137-145) mmol/L Potassium 3.8 (3.4-5.1) mmol/L Chloride 103 (98-107) mmol/L Carbon Dioxide 25 (22-32) mmol/L BUN 15 (7-17) mg/dL Creatinine 0.58 (0.52-1.04) mg/dL Estimated GFR > 60.0 (>60) mL/min BUN/Creatinine Ratio 25.9 H (6-22) Glucose 107 H (70-100) mg/dL Calcium 9.6 (8.4-10.2) mg/dL Total Bilirubin 0.6 (0.2-1.3) mg/dL AST 30 (14-36) IU/L ALT 30 (<35) IU/L Alkaline Phosphatase 57 (38-126) U/L Total Creatine Kinase 61 (30-135) U/L CK-MB (CK-2) TNP CK-MB (CK-2) Rel Index TNP Troponin I < 0.012 (0.01-0.034) ng/mL Total Protein 9.1 H (6.3-8.2) g/dL Albumin 5.4 H (3.5-5.0) g/dL Globulin 3.7 (1.7-4.1) g/dL Albumin/Globulin Ratio 1.5 (1.0-2.8) Lipase 82 (23-300) U/L Imaging Data Chest x-ray: Radiologist's Impression: PROCEDURE:? XR CHEST 1V ? INDICATIONS:? hypertension ? TECHNIQUE:? One view of the chest was acquired.? ? COMPARISON:? None. ? FINDINGS:? ? Surgical changes and devices:? None.? ? Lungs and pleura:? Lungs are clear.? No pleural effusions or pneumothorax.? ? Mediastinum:? Mediastinal contours appear normal.? Heart size is normal.? ? Bones and chest wall:? No suspicious bony lesions.? Overlying soft tissues appear unremarkable.? ? IMPRESSION:? No acute process. ? ? Dictated by: Shireen Beavers M.D. on 06/25/2021 at 10:26 ? ? ECG Data Interpretation: Normal sinus rhythm rate 74 [place] interval 164 QRS [address] changes no T-wave inversion MDM Narrative Medical decision making narrative: The patient has had sinus pain and pressure ongoing for a couple of days. She denies any fever at this time does not require antibiotics. She did take multiple stimulant such as Sudafed and Afrin which could cause an elevated blood pressure. Her blood pressure has actually come down quite a bit in the emergency department. She certainly has no sign of end-organ damage. We discussed other ways to help with sinus pain including Neti pot and to continue allergy medications. She also apparently is having very irregular menstrual cycles which she says also sometimes causes headaches. Recommend outpatient follow-up at this time. Discharge Plan Departure Patient Disposition: Home Clinical Impression: Acute sinus infection, Hypertension, Sinus headache Instructions: Sinus Headache, DI for High Blood Pressure Activity Restrictions/Additional Instructions: *You have been diagnosed with sinus headache, hypertension *What to do: Avoid after the Sudafed these will elevate your blood pressure. Please use the saline or Neti pot to help with your sinus pain. His may also try ibuprofen and Tylenol if needed *Continue to take medications as directed Tylenol and ibuprofen as directed *Follow up with your primary care provider in 2-3 days or call [phone] *Return to ER if you should have persistent symptoms for more than 10 days, fever more than 100.4, increase neck pain headache confusion blood pressure greater than 190/100 for more than 2 hours or any new, worsening or concerning symptoms Prescriptions: No Action multivitamin [Multiple Vitamins] 1 EACH tablet 1 tab PO DAILY Qty: 0 0RF cetirizine 10 MG tablet 10 mg PO DAILY Qty: 0 0RF ibuprofen 200 mg Tablet 1 dose PO PRN PRN (Reason: pain) 0RF fluticasone propionate [Flonase Allergy Relief] 50 mcg/actuation [place],Suspension 1 puff intranasal DAILY 0RF flaxseed oil 1 dose PO DAILY 0RF amoxicillin-pot clavulanate [Augmentin] 875-125 mg tablet 1 tab PO BID Qty: 8 0RF oxycodone 5 mg tablet 5 mg PO Q4-6H PRN (Reason: painful procedure) Qty: 14 0RF Rx Instructions: May constipate
[2021-06-25 10:30] LABS: Add Manual Diff / Slide Review NO; Basophils Absolute Auto 0 /uL (0-100); Basophils Percent Auto 0.5 % (0-2); Eosinophils Absolute Auto 100 /uL (0-450); Hematocrit 39.5 % (36-46); Hemoglobin 13.6 g/dL (12.0-16.0); Lymphocytes Absolute Auto 2100 /uL (1100-4500); Lymphocytes Percent Auto 32.4 % (25-40); Mean Corpuscular HGB Conc 34.4 % (30-36); Mean Corpuscular Hemoglobin 29.6 PG (26-34); Mean Corpuscular Volume 86.1 fL (80-100); Monocytes Absolute Auto 300 /uL (0-900); Monocytes Percent Auto 4.9 % (3-14); Neutrophils Absolute Auto 4000 /uL (1500-7000); Neutrophils Percent Auto 61.2 % (50-75); Platelet Count 301 X10^3/uL (150-400); Red Blood Cell Count 4.58 X10^6/uL (4.0-5.2); Red Cell Distribution Width 12.9 % (11.6-14.8); White Blood Cell Count 6.6 X10^3/uL (4.5-11.0)
[2021-06-25 10:35] LABS: Alanine Aminotransferase 30 IU/L (<35); Albumin 5.4 g/dL (3.5-5.0); Albumin Globulin Ratio 1.5 (1.0-2.8); Alkaline Phosphatase 57 U/L (38-126); Aspartate Aminotransferase 30 IU/L (14-36); BUN Creatinine Ratio 25.9 (6-22); Bilirubin Total 0.6 mg/dL (0.2-1.3); Blood Urea Nitrogen 15 mg/dL (7-17); Calcium 9.6 mg/dL (8.4-10.2); Carbon Dioxide 25 mmol/L (22-32); Chloride 103 mmol/L (98-107); Creatine Kinase 61 U/L (30-135); Estimated Glomerular Filt Rate > 60.0 mL/min (>60); Globulin 3.7 g/dL (1.7-4.1); Glucose 107 mg/dL (70-100); HEMOLYSIS 31 (0-50); Lipase 82 U/L (23-300); Potassium 3.8 mmol/L (3.4-5.1); Sodium 139 mmol/L (137-145); Total Protein 9.1 g/dL (6.3-8.2)
[2021-06-25 10:46] LABS: Troponin I < 0.012 ng/mL (0.01-0.034)
--- NOTE | 2021-06-25 11:04 | PC.NURSE ---
pt states she has another of her sinus infections, she gets them frequently. she has been taking flonase, sudafed and zyrtec since . yesterday she was feeling shaking and worse so she took her BP. it was 150-170/100. she went to work today and it was the same. when she called her DR office and took her BP over the phone, it was 200/100. she was advised to go to the ED. she c/o headache that is different from her regular sinus headache but does state she is feeling anxious too. at bedside.
[2021-06-25] MEDS: KETOROLAC 30 MG/ML VIAL 15 MG IV (11:45)
== END 2021-06-25 12:34 | disposition home or self-care (01) ==
PROVIDERS: Emergency Provider Emergency Medicine
DX: J32.9 Chronic sinusitis, unspecified (principal); I10 Essential (primary) hypertension
CPT/HCPCS: 71045; 80053; 82550; 83690; 84484; 85025; 93005; 93010; 96374; 99284; J1885

== ENCOUNTER → 2024-01-09 17:45 | Outpatient (CLI) | payer BC, SELFPAY ==
[2021-06-25 09:40] VITALS: BMI 24.2
--- NOTE | 2024-01-09 17:47 | DI.MG.S_ITS ---
BILATERAL DIGITAL SCREENING MAMMOGRAM 3D/2D WITH CAD: 01/09/2024 CLINICAL: Routine screening. Baseline exam. No prior exams were available for comparison. There are scattered areas of fibroglandular density (category b / 25%-50% glandular tissue). Current study was also evaluated with a Computer Aided Detection (CAD) system. No significant masses, calcifications, or other findings are seen in either breast. IMPRESSION: NEGATIVE There is no mammographic evidence of malignancy. A 1 year screening mammogram is recommended. Based on the Tyrer Cuzick model (a risk assessment model) the patient's lifetime risk is 11.1% and her 10 year risk is 3.0%. According to the ACR, ACS, and NCCN guidelines, an annual breast MRI exam along with mammogram is recommended if the patient's lifetime risk is 20% or greater. This exam was interpreted at Station ID: [id number]. NOTE: For mammograms, a report in lay terms will be sent to the patient. Approximately 15% of breast malignancies will not be visualized mammographically. In the management of a palpable breast mass, a negative mammogram must not discourage biopsy of a clinically suspicious lesion. Electronically Signed By: Karolina Betts M.D., Ph.D. ellyn/gualberto:01/13/2024 09:59:42 letter sent: Normal Exam ACR BI-RADS Category 1: Negative
== END ==
PROVIDERS: PCP Internal Medicine; Referring Provider Internal Medicine; Visit Provider Internal Medicine
DX: Z12.31 Encounter for screening mammogram for malignant neoplasm of breast (principal)
CPT/HCPCS: 77063; 77067

== ENCOUNTER → 2024-04-08 10:22 | Outpatient (CLI) | payer BC, SELFPAY ==
[2021-06-25 09:40] VITALS: BMI 24.2
[2024-04-08 11:13] LABS: Influenza A - CEPHEID Flu A NEGATIVE (NEGATIVE); Influenza B - CEPHEID Flu B NEGATIVE (NEGATIVE); Respiratory Syncytial Virus Negative (Negative)
[2024-04-08 11:20] LABS: COVID-19 CEPHEID 4-PLEX PCR Negative (Negative)
== END ==
PROVIDERS: PCP Internal Medicine; Visit Provider Physician Assistant
DX: R05.9 Cough, unspecified (principal)
CPT/HCPCS: 0241U